=== PATIENT | female | born 1995 | race Hispanic/Latino ===

== ENCOUNTER 2016-12-14 03:23 | Emergency (ER) | payer BC, OTHER ==
[2016-12-14 03:52] VITALS: BP 153/88; PULSE 100; RESP 18; TEMP 98.6; O2SAT 99
--- NOTE | 2016-12-14 04:30 | ED PDOC ---
HPI: CCC, URI, Sore Throat Time Seen by Provider: 12/14/16 04:18 Chief Complaint (Nursing): Flu-like Symptoms Chief Complaint (Provider): flu like symptoms History Per: Patient History/Exam Limitations: no limitations Onset/Duration Of Symptoms: Days (2-3) Current Symptoms Are (Timing): Still Present Location Of Pain: Throat, Sinus/es Sick Contacts (Context): None Associated Symptoms: Chills, Cough, Sinus Drainage, Myalgias, Nasal Congestion. denies: Fever, Sputum Additional Complaint(s): 21yo F in ED for eval sinus pain/pressure with increased drainage resulting in worsening cough at night and chills/body aches. admits to [facility] Past Medical History Reviewed: Historical Data, Nursing Documentation, Vital Signs Vital Signs: Last Vital Signs Temp 98.6 F 12/14/16 03:40 Pulse 100 H 12/14/16 03:40 Resp 18 12/14/16 03:40 BP 153/88 H 12/14/16 03:40 Pulse Ox 99 12/14/16 03:40 - Medical History PMH: No Chronic Diseases - Family History Family History: States: Unknown Family Hx - Immunization History Hx Tetanus Toxoid Vaccination: No Hx Influenza Vaccination: Yes Hx Pneumococcal Vaccination: No - Home Medications Home Medications: Ambulatory Orders Medication Instructions Recorded Ondansetron [Zofran] 4 mg PO Q6H PRN #10 tab 01/03/16 Azithromycin [Zithromax] 250 mg PO DAILY #6 tab 12/14/16 - Allergies Allergies/Adverse Reactions: Allergies Allergy/AdvReac Type Severity Reaction Status Date / Time latex Allergy RASH Verified 12/14/16 03:39 Review of Systems ROS Statement: Except As Marked, All Systems Reviewed And Found Negative Constitutional: Positive for: Chills, Malaise ENT: Positive for: Nose Congestion Physical Exam - Reviewed Nursing Documentation Reviewed: Yes Vital Signs Reviewed: Yes - Physical Exam Appears: Positive for: Non-toxic, No Acute Distress, Uncomfortable Head Exam: Positive for: ATRAUMATIC, NORMAL INSPECTION, NORMOCEPHALIC Skin: Positive for: Normal Color, Warm, DRY ENT: Positive for: Sinus Pain/Drainage, Other (sinusis pain/tenderness most noted to frontal ) Neck: Positive for: Normal, Painless ROM Cardiovascular/Chest: Positive for: Regular Rate, Rhythm Respiratory: Positive for: CNT, Normal Breath Sounds Gastrointestinal/Abdominal: Positive for: Normal Exam, Bowel Sounds, Soft Back: Positive for: Normal Inspection Extremity: Positive for: Normal ROM Neurologic/Psych: Positive for: Alert, Oriented - ECG O2 Sat by Pulse Oximetry: 99 Medical Decision Making Medical Decision Making: pt dx: sinusitis given first dose of abx in ED and d/c with Rx for Z-pack with f.u with pmd VS stable, pt nontoxic appearing. Disposition - Clinical Impression Clinical Impression: Sinusitis - Patient ED Disposition Is Patient to be Admitted: No Counseled Patient/Family Regarding: Diagnosis, Need For Followup, Rx Given - Disposition Referrals: Zen Tellez MD [Primary Care Provider] - Disposition: Routine/Home Disposition Time: 04:30 Condition: STABLE Prescriptions: Azithromycin [Zithromax] 250 mg PO DAILY #6 tab Instructions: Sinusitis (ED)
== END 2016-12-14 05:13 | disposition home or self-care (01) ==
LOC: H.ER 03:23
DX: J32.9 Chronic sinusitis, unspecified (principal)

== ENCOUNTER 2016-12-14 12:31 | Emergency (ER) | payer BC ==
[2016-12-14 13:02] VITALS: BP 152/86; PULSE 88; RESP 16; TEMP 98.4; O2SAT 99
[2016-12-14] MEDS ORDERED: Amoxicillin-Clav 875-125 mg Tab PO STA (14:14)
--- NOTE | 2016-12-14 14:21 | ED PDOC ---
HPI: Allergic Reaction Time Seen by Provider: 12/14/16 13:40 Chief Complaint (Nursing): Allergic Reaction Chief Complaint (Provider): Facial Swelling History Per: Patient History/Exam Limitations: no limitations Onset/Duration Of Symptoms: Hrs (morning prior to arrival ) Additional Complaint(s): Cj Domínguez, 21 year old female presents to the ED on 12/14/16 for left sided facial swelling occurring when she woke up this morning prior to arrival. The patient said she was diagnosed with Sinusitis for which she was started on antibiotics. She visited her PMD today and was prescribed cough medicine and nasal spray. She reports pain on the left side of her face radiating to the back of her neck. No fever or chills. Past Medical History Reviewed: Historical Data, Nursing Documentation, Vital Signs Vital Signs: Last Vital Signs Temp 98.4 F 12/14/16 12:58 Pulse 88 12/14/16 12:58 Resp 16 12/14/16 12:58 BP 152/86 H 12/14/16 12:58 Pulse Ox 99 12/14/16 12:58 - Medical History PMH: No Chronic Diseases - Family History Family History: States: Unknown Family Hx - Immunization History Hx Tetanus Toxoid Vaccination: No Hx Influenza Vaccination: Yes Hx Pneumococcal Vaccination: No - Home Medications Home Medications: Ambulatory Orders Medication Instructions Recorded Ondansetron [Zofran] 4 mg PO Q6H PRN #10 tab 01/03/16 Acyclovir 400 mg PO BID 7 Days 12/14/16 Amoxicillin/Clavulanate [Augmentin 1 tab PO BID #14 tab 12/14/16 875 MG-125 MG] Azithromycin [Zithromax] 250 mg PO DAILY #6 tab 12/14/16 Methylprednisolone [Medrol Dose 4 mg PO DAILY #21 mg 12/14/16 Pack (21 tabs)] - Allergies Allergies/Adverse Reactions: Allergies Allergy/AdvReac Type Severity Reaction Status Date / Time latex Allergy RASH Verified 12/14/16 03:39 Review of Systems ROS Statement: Except As Marked, All Systems Reviewed And Found Negative ENT: Positive for: Other (left sided facial swelling ) Physical Exam - Reviewed Nursing Documentation Reviewed: Yes Vital Signs Reviewed: Yes - Physical Exam Appears: Positive for: Non-toxic, No Acute Distress Head Exam: Positive for: ATRAUMATIC, NORMOCEPHALIC (left maxillary sinus tenderness; mild edema ) Skin: Positive for: Normal Color, Warm Eye Exam: Positive for: EOMI, PERRL, Other ((+) able to close left eye fully when using force) ENT: Positive for: TM Is/Are (WNL), Other (Left maxillary sinus tenderness). 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 (Weakness to Facial nerve, (+ ) slight drooping to left smile, able to close eye with effort), Oriented (x3) - ECG O2 Sat by Pulse Oximetry: 99 (RA) Pulse Ox Interpretation: Normal Disposition - Clinical Impression Clinical Impression: Sinusitis, Delaney's palsy - Patient ED Disposition Is Patient to be Admitted: No - Disposition Disposition: Routine/Home Disposition Time: 14:00 Condition: STABLE Prescriptions: Acyclovir 400 mg PO BID 7 Days Amoxicillin/Clavulanate [Augmentin 875 MG-125 MG] 1 tab PO BID #14 tab Methylprednisolone [Medrol Dose Pack (21 tabs)] 4 mg PO DAILY #21 mg Instructions: Sinusitis (ED) - POA Present On Arrival: None Medical Decision Making Medical Decision Making: Initial Impression: Left sided facial swelling Initial Plan: * Augmentin 875 mg-125 mg Tab 1 tab PO Stat * Decadron Inj 10 mg IM Once * Reevaluation Scribe Attestation: Documented by Radha Gardner, acting as a scribe for Vivian Avendano PA-C. Provider Scribe Attestation: All medical record entries made by the Scribe were at my direction and personally dictated by me. I have reviewed the chart and agree that the record accurately reflects my personal performance of the history, physical exam, medical decision making, and the department course for this patient. I have also personally directed, reviewed, and agree with the discharge instructions and disposition.
[2016-12-14] MEDS ORDERED: Amoxicillin-Clav 875-125 mg Tab PO ONE (14:45)
== END 2016-12-14 15:54 | disposition home or self-care (01) ==
LOC: H.ER 12:31
DX: G51.0 Bell's palsy (principal); J32.9 Chronic sinusitis, unspecified
CPT/HCPCS: 81025; 96372; 99282; J1100

== ENCOUNTER 2018-09-17 17:34 | Emergency (ER) | payer BC ==
[2018-09-17] MEDS ORDERED: Sodium Chloride 0.9% 1,000 ML IV STA (18:14)
--- NOTE | 2018-09-17 18:21 | ED PDOC ---
HPI: Hypertension/Hypotension Time Seen by Provider: 09/17/18 18:04 Chief Complaint (Nursing): Headache Chief Complaint (Provider): Palpitations, Dehydration History Per: Patient History/Exam Limitations: no limitations Onset/Duration Of Symptoms: Days (x4) Current Symptoms Are (Timing): Still Present Additional Complaint(s): 23 year old female presents to the ED for evaluation of palpitations associated with feeling dehydrated and mild nausea for the past four days. Otherwise, denies fever, chest pain, abdominal pain, vomiting, and diarrhea. Of note, patient says she was started on a beta connor by her PMD one month ago for anxiety and has been taking it intermittently. PMD: Zen Tellez Past Medical History Reviewed: Historical Data, Nursing Documentation, Vital Signs Vital Signs: Last Vital Signs Temp 98.6 F 09/17/18 17:40 Pulse 108 H 09/17/18 17:40 Resp 16 09/17/18 17:40 BP 149/91 H 09/17/18 17:40 Pulse Ox 100 09/17/18 17:40 - Medical History PMH: Anxiety - Surgical History Surgical History: No Surg Hx - Family History Family History: States: Unknown Family Hx - Immunization History Hx Tetanus Toxoid Vaccination: No Hx Influenza Vaccination: Yes Hx Pneumococcal Vaccination: No - Home Medications Home Medications: Ambulatory Orders Medication Instructions Recorded Ondansetron [Zofran] 4 mg PO Q6H PRN #10 tab 01/03/16 Acyclovir 400 mg PO BID 7 Days tablet 12/14/16 Amoxicillin/Clavulanate [Augmentin 1 tab PO BID #14 tab 12/14/16 875 MG-125 MG] Azithromycin [Zithromax] 250 mg PO DAILY #6 tab 12/14/16 Methylprednisolone [Medrol Dose 4 mg PO DAILY #21 mg 12/14/16 Pack (21 tabs)] - Allergies Allergies/Adverse Reactions: Allergies Allergy/AdvReac Type Severity Reaction Status Date / Time latex Allergy RASH Verified 12/14/16 03:39 Review of Systems ROS Statement: Except As Marked, All Systems Reviewed And Found Negative Constitutional: Positive for: Other (feels dehydrated). Negative for: Fever Cardiovascular: Positive for: Palpitations. Negative for: Chest Pain Gastrointestinal: Positive for: Nausea (mild). Negative for: Vomiting, Abdominal Pain, Diarrhea Physical Exam - Reviewed Nursing Documentation Reviewed: Yes Vital Signs Reviewed: Yes - Physical Exam Appears: Positive for: No Acute Distress Head Exam: Positive for: ATRAUMATIC, NORMOCEPHALIC Skin: Positive for: Normal Color, Warm. Negative for: Rash Eye Exam: Positive for: Normal appearance ENT: Positive for: Other (mucous membranes tacky). Negative for: Pharyngeal Erythema Neck: Positive for: Normal, Painless ROM, Supple Cardiovascular/Chest: Positive for: Regular Rate, Rhythm Respiratory: Positive for: Normal Breath Sounds. Negative for: Respiratory Distress Gastrointestinal/Abdominal: Positive for: Normal Exam, Soft. Negative for: Tenderness Back: Positive for: Normal Inspection Extremity: Positive for: Normal ROM (all extremities). Negative for: Calf Tenderness, Swelling (to any extremity) Neurological/Psych: Positive for: Awake, Alert, Symmetric/Intact Strength (5/5 x4 extremities), Oriented (x3). Negative for: Motor/Sensory Deficits - Laboratory Results Result Diagrams: 09/17/18 18:47 09/17/18 18:47 - ECG O2 Sat by Pulse Oximetry: 100 (RA) Pulse Ox Interpretation: Normal Medical Decision Making Medical Decision Making: Time: 1812 Initial Impression: dehydration Initial Plan: --EKG --CMP --T3 chemistry --T4 chemistry --TSH --U-dip --U-preg --CBC with differential --Normal saline IV Scribe Attestation: Documented by Maureen Mckeon, acting as a scribe for Behzad Mcknight MD. Provider Scribe Attestation: All medical record entries made by the Scribe were at my direction and personally dictated by me. I have reviewed the chart and agree that the record accurately reflects my personal performance of the history, physical exam, medical decision making, and the department course for this patient. I have also personally directed, reviewed, and agree with the discharge instructions and disposition. Disposition - Clinical Impression Clinical Impression: Hyperthyroidism - Patient ED Disposition Is Patient to be Admitted: No Counseled Patient/Family Regarding: Studies Performed, Diagnosis, Need For Followup - Disposition Referrals: Ifrah Cosby MD [Medical Doctor] - Disposition: Routine/Home Disposition Time: 21:01 Condition: FAIR Instructions: Hyperthyroidism (Overactive Thyroid) Forms: [employer] (Amharic)
[2018-09-17 18:57] LABS: BASO # 0.1 K/uL (0.0-0.2); BASO % 0.9 % (0.0-2.0); EOS # 0.1 K/uL (0.0-0.7); EOS % 0.8 % (0.0-4.0); HEMOGLOBIN 13.5 g/dL (12.0-16.0); LYMPH # 2.5 K/uL (1.0-4.3); MEAN CELL VOLUME 88.9 fl (81.0-99.0); MEAN CORPUSCULAR HEMOGLOBIN 30.5 pg (27.0-31.0); MEAN CORPUSCULAR HGB CONC 34.4 g/dL (33.0-37.0); MEAN PLATELET VOLUME 8.7 fl (7.2-11.7); MONO # 0.7 K/uL (0.0-0.8); MONO % 8.7 % (0.0-10.0); NEUT # 4.7 K/uL (1.8-7.0); NEUT % 58.6 % (50.0-75.0); NRBC % 0.1 % (0.0-0.0); RBC 4.42 Mil/uL (3.80-5.20); RED CELL DISTRIBUTION WIDTH 13.3 % (11.5-14.5)
[2018-09-17 19:22] LABS: ALB/GLOB RATIO 1.2 (1.0-2.1); ALBUMIN 4.4 g/dL (3.5-5.0); ALT/SGPT 27 U/L (9-52); AST/SGOT 21 U/L (14-36); BLOOD UREA NITROGEN 7 mg/dl (7-17); CALCIUM 9.5 mg/dL (8.4-10.2); GFR NON-AFRICAN AMERICAN > 60
[2018-09-17 21:52] VITALS: BP 136/81; PULSE 86; RESP 16; TEMP 98.4; O2SAT 99
--- NOTE | 2018-09-18 08:12 | CARD ---
APPROVED REPORT Date of service: 09/17/2018 EKG Measurement Heart [id number] <Conclusion> Normal sinus rhythm with sinus arrhythmia Normal ECG
== END 2018-09-17 21:31 | disposition home or self-care (01) ==
LOC: H.ER 17:34
DX: E05.90 Thyrotoxicosis, unspecified without thyrotoxic crisis or storm (principal); E86.0 Dehydration; F41.9 Anxiety disorder, unspecified; I10 Essential (primary) hypertension
CPT/HCPCS: 80053; 81025; 84436; 84443; 84480; 85025; 93005; 99285; J7030